=== PATIENT | female | born 1990 | race Caucasian/White ===

== ENCOUNTER 2024-04-03 20:01 | Emergency (ER) | payer OTHER, SELFPAY ==
--- NOTE | 2024-04-03 20:05 | ECG_ITS ---
Test Reason : CHEST PAIN Blood Pressure : / mmHG Vent. Rate : 086 BPM Atrial Rate : 086 BPM P-R Int : 154 ms QRS Dur : 082 ms QT Int : 378 ms P-R-T Axes : 035 025 018 degrees QTc Int : 452 ms Normal sinus rhythm Normal ECG No previous ECGs available Referred By: Kenneth Ortega Electronically Signed By:AISHA CARTER
--- NOTE | 2024-04-03 20:22 | ED.GENADULT ---
HPI - General Adult General Chief complaint: Chest Pain Stated complaint: left side chest pain/left arm tingly-saw U.C 03/31 Source: patient, RN notes reviewed and old records reviewed Mode of arrival: ambulatory Limitations: no limitations History of Present Illness ED Provider: Shannon COLE narrative: 33-year-old female with past medical history significant for factor 5 Leiden presents for evaluation of chest pain. Patient reports she has had chest pain for the last 5 days. She has intermittent numbness and tingling going into her left arm She went to urgent care a few days ago and had a reportedly normal EKG. She was told by the provider there if her pain continues she may benefit from further evaluation with labs Patient reports continued pain that is unrelieved with Tylenol She is not currently take any medications, she was taking aspirin during her to prevent preeclampsia. She is 9 months Denies any cough, shortness of breath. Her child is home with a fever of 103.5, her recently had pneumonia. The patient denies any fevers or chills Related Data Allergies Allergy/AdvReac Type Severity Reaction Status Date / Time Penicillins Allergy Hives Verified 04/03/24 20:27 shrimp Allergy Hives Verified 04/03/24 20:27 Review of Systems Constitutional: Constitutional: Denies body ache(s), Denies chills and Denies fever(s) ENT: Denies sore throat Cardiovascular: Cardiovascular: Reports chest pain, Denies leg edema and Denies dyspnea Respiratory: Respiratory: Denies cough and Denies dyspnea Musculoskeletal: Musculoskeletal: Reports numbness and Reports tingling Neurologic: Reports numbness and Reports tingling Physical Exam ED Vital Signs: Vital Signs - 24 hr 04/03/24 20:23 Temperature 98.5 F Pulse Rate 89 Respiratory Rate 16 Blood Pressure 112/77 Pulse Oximetry 100 Oxygen Delivery Method Room Air BMI result Body Mass Index 39.1 Const General: healthy appearing, comfortable, no acute distress, alert and awake Nutritional Appearance: well nourished Orientation/consciousness: patient oriented x3 HENMT Head: Yes normocephalic and Yes atraumatic Eyes Eyelids: Yes eyelids normal Conjunctivae: conjunctivae normal Sclerae: sclerae normal Corneas: corneas normal Pupils: Equal, round and reactive pupils present EOM: EOMs intact bilaterally Neck Neck: Yes full ROM Resp Effort & Inspection: normal respiratory effort, able to speak in complete sentences and not labored Skin General skin exam: elasticity normal Neuro General: patient oriented x3 Cranial nerves: Yes Equal, round and reactive pupils present and Yes Bilaterally intact EOM present Cognition (Neuro): normal cognition Extrem Other: Moving all extremities well without any obvious deformities Course Course Course Narrative: RME, this is a rapid medical exam performed by Victor M Ortega please refer to primary provider for complete H&P- 33-year-old female with past medical history significant for factor 5 laden deficiency presents for evaluation of left-sided chest pain for the last 5 days. Patient reports occasional numbness and tingling in the left arm. She also reports that she is 9 months . She went to urgent care and had a reportedly normal EKG. Denies any strenuous activity, heavy lifting. No improvement with Tylenol. Plan for labs including troponin, coags Reevaluation(s) Reevaluation #1: Shortly after patient's labs were drawn, she reported that she had an emergency at home with her child being sick and being brought to [facility] pediatric ER. The patient expressed interest in leaving. She was provided with a pamphlet on how to access her MyChart for any abnormal labs. She was encouraged to follow up with the PCP, but she reports that she does not have 1 at this time Time: 20:58 Medical Decision Making Medical Decision Making MDM Narrative: 33-year-old female presents for evaluation of chest pain. She has no risk factors for ACS at this time. She does have a history of factor 5 Leiden deficiency. Her EKG is nonischemic. Plan for labs including troponin, coags due to her history of factor 5 Leiden. Differential Diagnosis Differential Diagnoses: The differential diagnosis associated with the presentation includes Chest pain Chest wall pain ACS PE Bronchitis COVID-19 Lab Data 04/03/24 20:48 04/03/24 20:48 Independent Interpretation I performed an independent interpretation of an: EKG Interpretation: Normal sinus rhythm with a rate of [address] segment elevation or depression. Nondiagnostic EKG Tests considered The following testing was considered but not selected: Consider chest x-ray, with the patient has no cough, no shortness of breath Discharge Plan Discharge Clinical Impression: Chest pain Patient Disposition: Left Against Medical Advice Print Language: Honduran
[2024-04-03 20:23] VITALS: BP 112/77; PULSE 89; RESP 16; TEMP 36.9; O2SAT 100; BMI 39.1
[2024-04-03 20:52] LABS: MANUAL DIFF FLAG NO
[2024-04-03 20:53] LABS: Basophils Percent Auto 0.2 % (0-2); Eosinophils Absolute Auto 0.1 X10*3/uL (0.0-0.4); Eosinophils Percent Auto 0.6 % (0-4); Hematocrit 39.5 % (37.0-47.0); Hemoglobin 13.4 g/dl (12.0-16.0); Imm Gran Abs Auto 0.01 X10*3/uL (0.00-0.03); Imm Gran Pct Auto 0.1 % (0.0-0.4); Lymphocytes Absolute Auto 2.4 X10*3/uL (1.2-4.9); Lymphocytes Percent Auto 28.3 % (20-40); Mean Corpuscular HGB Conc 33.9 g/dl (31.0-35.0); Mean Corpuscular Hemoglobin 31.8 pg (27.0-33.0); Mean Corpuscular Volume 93.6 fL (80.0-98.0); Monocytes Absolute Auto 0.4 X10*3/uL (0.1-1.2); Monocytes Percent Auto 4.6 % (2-11); Neutrophils Absolute Auto 5.5 x10*3/uL (2.0-8.3); Neutrophils Percent Auto 66.2 % (45-73); Platelet Count 241 X10*3/uL (160-400); Red Blood Count 4.22 X10*6/uL (4.20-5.50); Red Cell Distribution Width 12.3 % (11.0-16.0); White Blood Count 8.3 X10*3/uL (4.8-10.8)
[2024-04-03 21:12] LABS: Alanine Aminotransferase 21 U/L (0-31); Albumin Level 4.6 g/dL (3.5-5.0); Alkaline Phosphatase 63 U/L (39-117); Anion Gap 13 (12-20); Aspartate Amino Transferase 18 U/L (5-31); Bilirubin Total 1.2 mg/dL (0.0-1.0); Blood Urea Nitrogen 15 mg/dL (9-16); Calcium 9.8 mg/dL (8.4-10.2); Carbon Dioxide 25 mmol/L (22-29); Chloride 107 mmol/L (96-108); Creatinine Clr Calc Pharmacy 112.5; Estimated Glomerular Filt Rate > 60; Glucose Random 114 mg/dL (60-115); Lipase 21 U/L (8-78); Potassium 3.5 mmol/L (3.3-5.1); Sodium 141 mmol/L (135-145); Total Protein 7.5 g/dL (6.5-8.0)
[2024-04-03 21:16] LABS: Troponin-I High Sensitivity < 2.7 ng/L (<3.5-17.0)
[2024-04-03 21:19] VITALS: BP 112/77; PULSE 89; RESP 16; TEMP 36.9; O2SAT 100
[2024-04-03 21:21] LABS: COVID-19 Test Negative (Negative); IDNOW Serial# 6674DD1D
[2024-04-03 21:22] LABS: HCG Quantitative < 2 mIU/mL
[2024-04-03 21:43] LABS: D Dimer High Sensitivity < 150 NG/ML
== END 2024-04-03 21:19 | disposition left against medical advice (07) ==
PROVIDERS: Physician Assistant; Emergency Provider Emergency Medicine
DX: R07.89 Other chest pain (principal); R20.2 Paresthesia of skin; R10.2 Pelvic and perineal pain; Z11.52 Encounter for screening for COVID-19; Z79.899 Other long term (current) drug therapy
CPT/HCPCS: 36415; 80053; 83690; 84484; 84702; 85025; 85379; 85610; 87635; 93005; 99283

== ENCOUNTER 2025-06-03 12:29 | Emergency (ER) | payer OTHER, SELFPAY ==
--- NOTE | 2025-06-03 13:02 | ED.GENADULT ---
HPI - General Adult General Chief complaint: Skin/Abscess/Foreign Body Stated complaint: Shingles outbreak? Time Seen by Provider: 06/03/25 13:07 Source: patient Mode of arrival: ambulatory Limitations: no limitations History of Present Illness ED Provider: Karissa Qiuroga PA-C HPI narrative: Patient is a 34 year old assigned female at with no reported medical history presenting to the emergency department today with a neck and face rash. Patient states that she has had an intermittent rash to her neck and face. Patient states that she breaks out in this rash when she is particularly stressed. Patient states that she has a PCP for the first time in a long time and sent her a picture and she told her to come to the ER [facility] because of possible shingles. Patient denies any other complaints at this time. Patient states that the rash does not itch and does not burn. Related Data Previous Rx's ?Medication ?Instructions ?Recorded prednisone 20 mg tablet 40 mg (2 x 20 mg) PO DAILY COPD 06/03/25 exacerbation 5 days #10 tabs Allergies Allergy/AdvReac Type Severity Reaction Status Date / Time Penicillins Allergy Hives Verified 06/03/25 13:05 shrimp Allergy Hives Verified 06/03/25 13:05 Review of Systems Constitutional: Constitutional: Reports as per HPI Eyes: Eyes: Reports as per HPI ENT: Reports as per HPI Cardiovascular: Cardiovascular: Reports as per HPI Respiratory: Respiratory: Reports as per HPI Gastrointestinal: Gastrointestinal: Reports as per HPI Genitourinary: Genitourinary: Reports as per HPI Musculoskeletal: Musculoskeletal: Reports as per HPI Integumentary/Breasts: Skin/Breast: Reports as per HPI Neurologic: Reports as per HPI Psychiatric: Psychiatric: Reports as per HPI Endocrine: Endocrine: Reports as per HPI Hematologic/Lymphatic: Hematologic/Lymphatic: Reports as per HPI Allergic/Immunologic: Allergic/Immunologic: Reports as per HPI [facility] Past Medical History Attestation statement: The following information was validated with the patient. Source: old records reviewed and nursing notes reviewed Social History Social History Advance Directives: Yes Advance Directives Information Provided: No Advance Directives on File: No Physical Exam ED Vital Signs: Vital Signs - 24 hr 06/03/25 13:03 06/03/25 13:30 Temperature 98.2 F 98.2 F Pulse Rate 72 72 Respiratory Rate 20 20 Blood Pressure 131/69 131/69 Pulse Oximetry 100 100 Oxygen Delivery Method Room Air Room Air BMI result Body Mass Index 38.4 Const General: cooperative, no acute distress, alert and awake Nutritional Appearance: well nourished Orientation/consciousness: patient oriented x3 HENMT Head: Yes normal to inspection and Yes atraumatic Ears: hearing grossly normal bilaterally and external ears normal General nose exam: Normal external nose present, no nasal discharge noted and no epistaxis Face and sinus: No abrasion and No laceration Mouth: Normal oral and palatal mucosa present, no drooling and no muffled voice Eyes General: appearance normal, both eyes and all related structures Periorbital: periorbital findings normal Eyelids: Yes eyelids normal Conjunctivae: conjunctivae normal Pupils: Equal, round and reactive pupils present EOM: EOMs intact bilaterally Neck Neck: Yes normal visual inspection and Yes full ROM Resp Effort & Inspection: normal respiratory effort and able to speak in complete sentences Skin Other: Neuro General: patient oriented x3, moves all extremities and CN's II-XI intact bilaterally Cranial nerves: Yes Equal, round and reactive pupils present Cognition (Neuro): normal cognition Extrem General: Yes normal to inspection, Yes full ROM and Yes capillary refill normal Psych Appearance: grossly normal Mental Status: mental status grossly normal Affect: normal affect Attitude: cooperative Thought process: Normal thought process present Thought content: Normal thought content present Insight: Good insight present (Psych) Medical Decision Making Medical Decision Making MDM Narrative: Patient is a 34 year old assigned female at with no reported medical history presenting to the emergency department today with a neck and face rash. Patient's physical exam was as noted in the physical exam portion of this note. Patient's rash is NOT consistent with shingles. It is more consistent with a dermatitis. I explained my physical exam findings to the patient. I answered all questions asked by the patient. I stressed the importance of the patient taking her medication as directed (either prescribed or as the over the counter packaging recommends). I stressed the importance of the patient following up with her primary care provider and a tie hacker. I stressed the importance of the patient returning to the emergency department immediately if her symptoms were to worsen or if she were to develop any dizziness, shortness of breath, difficulty breathing, chest pain, blurry vision, loss of vision, nausea, vomiting, abdominal pain, fever, chills, back pain, or any other complaints. Patient verbalized agreement and understanding with this treatment plan and discharge. Differential Diagnosis Differential Diagnoses: The differential diagnosis associated with the presentation includes Dermatitis Rash Admission/Observation Consideration of admission/observation: Escalation of care including admission/observation considered Patient would have been admitted to the hospital had her clinical presentation warranted hospital admission. Discharge Plan Discharge Clinical Impression: Rash Patient Disposition: Home, Self-Care Instructions: Acute Rash (ED) Additional Instructions: Take your medication as prescribed. IF you are prescribed home medications and/or you are taking over the counter medications at home - it is very important you continue to do so as prescribed / directed unless told otherwise. Follow up with a primary care provider. Return to the emergency department immediately if your symptoms worsen or if you develop any numbness, tingling, dizziness, shortness of breath, difficulty breathing, chest pain, blurry vision, loss of vision, nausea, vomiting, abdominal pain, fever, chills, back pain, or any other complaints. If you do not have a primary care provider - call any of the below numbers to establish and follow up with a primary care provider. [facility] Primary Care ([place]) [phone] [place] [address], [id number] [facility] Primary Care ([facility]) [phone] [place] [address], [address] [facility], [address] [facility] Primary Care ([address] [facility]) [phone] [place] [address], [address] [facility], [address] [facility] ([place]) [phone] [place] [address] 2 [facility], [address] [facility] Family Medicine [phone] [address] [facility], [address] Please see the information below about our Patient Portal. If you are not yet enrolled in the [facility] Patient Portal, you will receive an enrollment email invitation following your visit to any [facility] care setting. You may also self-enroll in the Patient Portal by visiting our website: [email or web address] The following information is required to access the Patient Portal: - Your [facility] Medical Record Number - Your personal home email address (must match what is in your electronic medical record, Registration staff can assist with this) - Name - Date of Capabilities of the Patient Portal: - Message some providers - View upcoming appointments - Access your health summary, medical history, and visit history - View current conditions and allergies - View procedure and lab results - View your medications, including guidelines, side effects, and precautions - Complete pre-appointment questionnaires requested by your provider - Ready summary reports of your office visits and procedures To access the Patient Portal Mobile [employer], follow these directions: - Search [employer] in the [employer] Store or [employer] - Download the Christopher - Search for [facility] - Enter your login/password Prescriptions: New prednisone 20 mg tablet 40 mg PO DAILY 5 Days Qty: 10 0RF Interventions: ED Discharge Assessment Last Done: 06/03/25 13:30 Discharge Date/Time: 06/03/25 13:31 Print Language: Turkish
[2025-06-03 13:03] VITALS: BP 131/69; PULSE 72; RESP 20; TEMP 36.8; O2SAT 100; BMI 38.4
[2025-06-03 13:30] VITALS: BP 131/69; PULSE 72; RESP 20; TEMP 36.8; O2SAT 100
== END 2025-06-03 13:31 | disposition home or self-care (01) ==
LOC: HO.ED 13:20
PROVIDERS: Emergency Provider Emergency Medicine; PCP Nurse Practitioner Family
DX: R21 Rash and other nonspecific skin eruption (principal)
CPT/HCPCS: 99282; 99283

== ENCOUNTER 2025-06-30 19:27 | Emergency (ER) | payer OTHER, SELFPAY ==
[2025-06-30 19:57] VITALS: BP 127/65; PULSE 88; RESP 16; TEMP 36.6; O2SAT 97; BMI 38.0
--- NOTE | 2025-06-30 20:09 | ED_ITS ---
HPI - General Adult General Chief complaint: Skin/Abscess/Foreign Body Stated complaint: Skin Rash Time Seen by Provider: 06/30/25 20:09 Source: patient Mode of arrival: ambulatory Limitations: no limitations History of Present Illness HPI narrative: 34-year-old female presents for evaluation of a facial rash. Patient states she has had 3 episodes of this facial rash in an 8 week time. She was initially concerned as she thought it might have been zoster however that does not appear to have in the case. The rash is in the same area on her face, in the region of the angle of her jaw and neck, temples. It is not itchy. It is red with tiny papules. There was no streaking. She denies any pain. No vision changes. No headache. No URI symptoms. She denies any new detergents, soaps or contacts. Warm compresses offered some relief. The rash typically resolves on its own in several days. She is scheduled to see Dermatology but not until September. Related Data Previous Rx's ?Medication ?Instructions ?Recorded prednisone 20 mg tablet 40 mg (2 x 20 mg) PO DAILY C OPD 06/03/25 exacerbation 5 days #10 tabs Allergies Allergy/AdvReac Type Severity Reaction Status Date / Time Penicillins Allergy Hives Verified 06/30/25 20:09 shrimp Allergy Hives Verified 06/30/25 20:09 Review of Systems Review of Systems: Yes all other systems are reviewed and are negative Eyes: Eyes: Denies diplopia, Denies eye discharge and Denies dry eyes Respiratory: Respiratory: Denies cough Gastrointestinal: Gastrointestinal: Denies vomiting Physical Exam ED Vital Signs: Vital Signs - 24 hr 06/30/25 19:57 Temperature 98 F Pulse Rate 88 Respiratory Rate 16 Blood Pressure 127/65 Pulse Oximetry 97 Oxygen Delivery Method Nasal Cannula BMI result Body Mass Index 38.0 Const General: alert, awake and Physically active HENOK Other: Oropharynx is moist. No oral lesions. Pupils equal round and reactive to light. No injection. No discharge auditory canals are patent. No lesions Neck Neck: Yes normal visual inspection Skin Other: Tiny, flesh-colored papules, pustules scattered in patches on the areas of the temples bilaterally, angle of the jaw bilaterally extending to the anterior neck. Slight erythema but no induration or discharge. No streaking. No scaling Medical Decision Making Medical Decision Making MDM Narrative: 34-year-old female with 3 separate episodes of facial rash that last for several days and then resolve typically on their own. Patient presents to the emergency department today to ensure there was no acute emergent process. She has not had follow up with her PCP and is currently scheduled with a software solutions architect. At this time the patient is afebrile, hemodynamically stable and has no vision changes. The rashes nontender, no evidence for cellulitis or abscess or anything that needs drainage at this time. She does not report a history of contact dermatitis. It is not itchy. Also there was no correlation with exercising, excessive sweating, lotions or makeup. She does not report any systemic symptoms. No indication for labs at this time however she may need specialized autoimmune testing. Patient would like to follow up with her PCP and will call the office tomorrow as well as calling dermatology office to schedule a earlier appointment. Patient feels comfortable with discharge plan home. No further questions at this time. Differential Diagnosis Differential Diagnoses: The differential diagnosis associated with the presentation includes Contact dermatitis Folliculitis Facial rash Sebaceous cyst Discharge Plan Discharge Clinical Impression: Facial rash Patient Disposition: Home, Self-Care Instructions: Acute Rash (ED) Additional Instructions: Continue warm compresses to the affected areas as that has helped. Watch for any worsening of symptoms, severe pain, increased redness, fevers spreading to other areas or any other concern return immediately to the emergency department. Follow up call to your software solutions architect first thing tomorrow morning. Follow-up with your primary care provider. Call this week to schedule a follow- up appointment. Return to the emergency department if you have any worsening of symptoms, or any concerns. Get well soon! Prescriptions: No Action prednisone 20 mg tablet 40 mg PO DAILY 5 Days Qty: 10 0RF Print Language: [place]
--- OUTSIDE RECORDS SUMMARY | 2025-06-30 20:23 | XMS_ITS | Data Portability ---
Author Organization [facility], [address] Address [address] [place] [address] Assessment No assessment recorded. Plan of Treatment Reminders Order Date Submit Date Provider Last Modified By Organization Details Last Modified Time Details Appointments None recorded. Lab rapid strep group A, throat 2022 023 [email or web address] _[facility], [facility] [place], [address], 10:34:41 Referral None recorded. Procedures None recorded. Surgeries None recorded. Imaging None recorded. Medication Orders cephalexin 500 mg capsule 2022 023 [id number], [address], [place], [id number], 10:34:52 Patient TargetsNo targets recorded. Patient Instructions Encounter Date Encounter Id Patient Instructions Last Modified By Organization Details Last Modified Time 11/01/2022 [id number] sore throat: car e instructions Not available 11/01/2022 10:34:41 Discussed potential complications and intervention options with the patient during this visit. Patient was instructed to increase room humidity and eat soft bland foods. Raising the head of the bed, lozenges, and saline nasal spray were also recommended. Patient may take ibuprofen or acetaminophen as needed for pain control. If the issue does not improve in 24-48 hours, patient should return to the clinic for follow-up. You have been prescribed an antibiotic for your bacterial illness. While antibiotics are sometimes necessary, they can have a negative impact upon the healthy bacteria within your body. This can result in diarrhea/loose stools and yeast infections. By taking probiotics during the course of your prescription, you can lessen the probability of these undesirable side effects. Probiotics can be purchased [id number] at your pharmacy in the form of capsules or gummies. They are also found naturally in yogurt with live cultures. Mix salt into a quarter-glass of warm water and stir until no more salt will dissolve. Gargle and spit out the salt water mixture one mouthful at a time until the glass is empty. Repeat 4 times daily. Hand hygiene is a brannon measure for preventing spread to others, especially after coughing or sneezing and before preparing foods or eating, and we remind all patients of its importance. Please discard of your current tooth brush and get a new one after being on the antibiotic for 3-4 days to prevent reinfection. You are considered contagious until you have the antibiotic for 24 hours. We have sent out for lab results, typically take 3-5 days to return. Not available 11/01/2022 10:34:40 Reason for Referral None Reported. Results Created Date Observation Date Name Description Value Unit Range Abnormal Flag Note LastModifiedBy Organization Detail LastModifiedTime 11/02/1911/01/2022 rapid strep group A, throa t Unknown Analyte positi ve Not Available _[address], [address], 11/01/2022 10:06:36 11/02/19 23 11/01/2022 rapid strep group A, throa t Unknown Analyte Normal = Negati ve Not Available [address], [address], 11/01/2022 10:06:36 Result Notes None recorded. Problems Name Problem SNOMED Code Status Onset Date Resolution Date Notes Provider Name and Address Organization Details Recorded Time Factor V Leiden mutation [id number] Active 023 EVA Hutson - [facility] 3 10:03:08 Problem Notes None recorded. Medical Equipment None Reported. Allergies Allergen ID Allergen Name Allergen Category Reaction Reaction Severity Criticality Documentation Date Start Date Code Code System Note Provider Name and Address Organization Details Recorded Time 623705 Product containin g penicilli n (product) medicatio n hives Not available Not available 11/01/2022 75971 8001 SNOMED Dana Wiley jennifer PA - [facility] 3 10:01:36 467513 shrimp allergeni c extract food Not available Not available Not available 11/01/2022 64304 2 RxNorm Dana Wiley jennifer PA - [facility] 3 10:01:43 Medications Name Sig Start Date Stop Date Status Note LastModified by Organization Details LastModified Time cephalexin 500 mg capsule Take 1 capsule every 12 hours by oral route with meals for 10 days. 023 active Not Available Not Available Not Avai lable Vitals Date Recorded Body height Body mass index (BMI) Body weight Pain severity - 0-10 verbal numeric rating [Score] - Reported Oxygen saturation Body temperature Heart rate Respiratory rate Systolic And Diastolic Provider Name and Address Organization Details Last Updated DateTime 3 167.64 cm 38.9 kg/m2 045855. 76 g 6 99 % 98.5 [degF] 98 /min 18 /min 108/73 mm[Hg] Dana Wiley PA - [facility] 3 10:06:29 Social History Question Answer Notes LastModified by Gojee Details LastModified Time Tobacco Smoking Status Never Smoker Dana Vegavic rodriguez PA - [facility] 11/01/2022 10:03:38 Have You Recently Traveled Abroad? No Information not available 11/01/2022 Sex: Unknown Functional Status Question Answer Note LastModified by Gojee Details LastModified Time How many times per week do you consume alcohol? 1-2 times per week Information not available 11/01/2022 Do you use any illicit or recreational drugs? No Information not available 11/01/2022 Do you or have you ever used any other forms of tobacco or nicotine? No Information not available 11/01/2022 What is your level of alcohol consumption? Occasional Information not available 11/01/2022 Mental Status None recorded. Family History Relationship Description Onset Age of this Age Resolved Age Notes LastModified by Organization Details LastModified Time Mother Malignant neoplasm of breast emonfette Not available 2022 10:02:38 Maternal Grandmother Malignant neoplasm of breast emonfette Not available 2022 10:02:38 Paternal Grandmother Malignant neoplasm of breast emonfette Not available 2022 10:02:38 Medical History No medical history recorded. Gynecological HistoryNo gynecological history recorded. Obstetrics History GPAL:G 0 P 0 0 0 0 Past Encounters Encounter ID Performer Location Encounter Start Date Encounter Closed Date Diagnosis/Indication Diagnosis SNOMED-CT Code Diagnosis ICD10 Code Diagnosis IMO Codes Diagnosis Note [id number] [address] [place] [address] 05/25/2020 09:04:58 05/25/2020 11:06:15 [id number] [address] [place] [address] 01/12/2021 08:03:11 01/12/2021 08:28:28 [id number] [address] [place] [address] 09/29/2015 17:05:19 09/29/2015 17:50:17 [id number] [address] [place] [address] 05/26/2019 08:19:17 05/26/2019 08:45:49 [id number] [address] [place] [address] 11/26/2016 12:42:07 11/26/2016 13:26:50 [id number] Junior Victoria NP [address] [place] [address] 11/01/2022 09:51:40 11/01/2022 10:36:48 Streptococcal sore throat 33579051 J02.0 Health Concerns Section Related Observation LastModified by Organization Detai ls LastModified Time None Recorded Concern Status LastModified by Organization Details LastModified Time None Recorded Advance Directives Directive None Recorded Payers Insurance Date Sequence Insurance Name Policy Number Policy López Covered Member ID López Member ID Guarantor Name 11/01/2022 1 [facility] () Aristides Tomlin Waverly [id number] Aristides Tomlin [place] Notes Date Note Type Note Provider Name and Address Organization Details Recorded Time 11/01/2022 text/html Sore throatRepor anne marie by PatientSore ThroatFor associated symptoms, patient reportssore throat,hoarseness,cough ing, andsinus pain/ congestionbut reportsno sputum production,no shortness of breath,no wheezing,no vomiting, andno nausea. For context, patient reportssick contactbut reportsno foreign travelandnon-smoker. For modifying factors, patient reportsexposed to strep non household. For source of patient information, patient reportsinformation obtained from patient,patient arrived at urgent care ambulatory, andlearning styles: auditory. For location, patient reportsthroat. For severity, patient reportsmild. For quality, patient reportssharpandburning. For onset/timing, patient reports3 days. Junior Victoria NP [address] [place], [address], [place] - [facility] 11/01/2022 10:35:17 OBGyn Episode No OBEpisode recorded.
[2025-06-30 20:34] VITALS: BP 127/65; PULSE 88; RESP 16; TEMP 36.6; O2SAT 97
== END 2025-06-30 20:25 | disposition home or self-care (01) ==
PROVIDERS: Emergency Provider Emergency Medicine Emergency Medical Services; PCP Nurse Practitioner Family
DX: R21 Rash and other nonspecific skin eruption (principal)
CPT/HCPCS: 99282